=== PATIENT | female | born 1945 | race Caucasian/White ===

== ENCOUNTER → 2016-11-14 | Outpatient (CLI) | payer MEDICARE, BC ==
--- NOTE | ~2016-11-14 | MY8 ---
[facility] A Service [facility] RADIOLOGY TEXT RESULTS PATIENT: CARISSA RAYMUNDO LOCATION: [facility] : 47 UNIT #: [id number] AGE: [address]: Diana Gupta MD SEX: F ORDER DR: [id number] [facility]. [place], [place] [address] [id number] O MR#: [id number] #: [id number] NAME: CARISSA RAYMUNDO : 1945 SEX: F STUDY DATE/TIME: 11/14/2016 14:58 UNIT: [facility] ROOM: STUDY DESCRIPTION: MY Mammogram Dx Dig Rt Attending Physician: Diana Gupta M.D. Ordering Physician: Diana Gupta M.D. Primary Care Physician: Diana Gupta M.D. MEDICAL IMAGING REPORT This report is preliminary unless electronic signature is present EXAM Right digital diagnostic mammogram. HISTORY 6-month follow-up indeterminate right breast microcalcifications. PROCEDURE CC, MLO, and true lateral views of the right breast. Magnification views in the CC and MLO projections. COMPARISON 05/11/2016 FINDINGS The indeterminate microcalcifications in the central right breast are not significantly changed. These are probably benign. There is no associated mass. IMPRESSION Probably benign microcalcifications in the central right breast are stable. Recommend attention on a 6-month follow-up to ensure stability. The patient will be due for left breast screening at that time. Patients over the age of 40 are entered into a reminder system with target due date for the next mammogram. A result letter will also be sent to the patient. BIRADS: 3 Probably benign finding; short interval followup suggested. Dictated by... [facility] A Service [facility] RADIOLOGY TEXT RESULTS PATIENT: CARISSA RAYMUNDO LOCATION: [facility] : 47 UNIT #: [id number] AGE: [address]: Diana Gupta MD SEX: F ORDER DR: Sy Kirkland M.D. THIS IS AN ELECTRONICALLY VERIFIED REPORT Sy Kirkland M.D. at 11/15/2016 7:06 AM VIJI/merry TD: 11/14/2016 17:33 JOB #: [id number] MEDICAL IMAGING REPORT Page 1 of 1 COPY
== END | disposition home or self-care (01) ==
LOC: CMAM 14:22
DX: R92.8 Other abnormal and inconclusive findings on diagnostic imaging of breast (principal); R92.0 Mammographic microcalcification found on diagnostic imaging of breast
CPT/HCPCS: G0206